=== PATIENT | male | born 1970 | race Caucasian/White ===

== ENCOUNTER 2019-05-07 09:49 | Observation (INO) | payer BC, OTHER ==
--- NOTE | 2019-05-07 10:29 | ER Document Report ---
ED Medical Screen (RME) - General TRAVEL OUTSIDE OF THE [place] IN LAST 30 DAYS: No <GILMA RAMIREZ - Last Filed: 05/07/19 10:27> <JAN RANDALL JR - Last Filed: 05/07/19 14:02> - General Chief Complaint: Arm Problem Stated Complaint: ARM SWELLING/PAIN Time Seen by Provider: 05/07/19 10:20 Primary Care Provider: ANALISA ANDRE MD [ACTIVE STAFF] - Follow up as needed Notes: Patient is a 48-year-old male presents to the emergency department with a chief complaint of bilateral arm pain. Patient states that on he did a heavy arm workout at the gym. Patient reports the next day he had bilateral arm swelling. Patient states he feels like he is having a soreness when he tries to extend the arm. Patient states he has not had any extremity cramping. Patient denies urinary symptoms or darker colored urine. Patient states he has been drinking without nausea, vomiting or diarrhea. Patient reports a history of hypertension. (GILMA RAMIREZ) - Related Data Allergies/Adverse Reactions: adhesive Allergy (Verified 05/07/19 10:24) latex Allergy (Verified 05/07/19 10:24) Past Medical History - Social History Frequency of alcohol use: None Drug Abuse: None - Past Medical History Cardiac Medical History: Reports: Hx Hypertension <GILMA RAMIREZ - Last Filed: 05/07/19 10:27> Physical Exam <GILMA RAMIREZ - Last Filed: 05/07/19 10:27> - Vital signs Vitals: Temp Pulse Resp BP Pulse Ox 98.7 F 61 20 140/89 H 96 05/07/19 10:04 05/07/19 10:04 05/07/19 10:04 05/07/19 10:04 05/07/19 10:04 - Extremities Notes: Bilateral upper extremity non-pitting edema without erythema, ecchymosis or deformity. (GILMA RAMIREZ) Course <GILMA RAMIREZ - Last Filed: 05/07/19 10:27> - Laboratory Result Diagrams: 05/07/19 11:07 05/07/19 11:07 <JAN RANDALL JR - Last Filed: 05/07/19 14:02> - Re-evaluation Re-evalutation: 05/07/19 10:28 I have greeted and performed a rapid initial assessment of this patient. A comprehensive ED assessment and evaluation of the patient, analysis of test results and completion of the medical decision making process will be conducted by additional ED providers. (GILMA RAMIREZ) - Vital Signs Vital signs: Temp Pulse Resp BP Pulse Ox 98.7 F 61 20 140/89 H 96 05/07/19 10:04 05/07/19 10:04 05/07/19 10:04 05/07/19 10:04 05/07/19 10:04 - Laboratory Laboratory results interpreted by me: 05/07/19 05/07/19 11:07 11:07 Sodium 136.0 L AST 739 H Creatine Kinase 88427 H Total Protein 6.2 L Urine Protein 30 H Doctor's Discharge <GILMA RAMIREZ - Last Filed: 05/07/19 10:27> <JAN RANDALL JR - Last Filed: 05/07/19 14:02> - Discharge Referrals: ANALISA ANDRE MD [ACTIVE STAFF] - Follow up as needed
[2019-05-07 11:25] LABS: MEAN CORPUSCULAR VOLUME 89 fl (80-97)
[2019-05-07 11:29] LABS: APPEARANCE,URINE CLEAR; BILIRUBIN,URINE NEGATIVE (NEGATIVE); COLOR,URINE AMBER; GLUCOSE, URINE NEGATIVE (NEGATIVE); KETONES,URINE NEGATIVE (NEGATIVE); LEUKOCYTE ESTERASE,URINE NEGATIVE (NEGATIVE); NITRITE,URINE NEGATIVE (NEGATIVE); PROTEIN,URINE 30 mg/dL (NEGATIVE); UROBILINOGEN,URINE NEGATIVE mg/dL (<2.0)
[2019-05-07 11:34] LABS: ABSOLUTE EOSINOPHILS # (AUTO) 0.3 10^3/uL (0.0-0.6); ABSOLUTE LYMPHOCYTES (AUTO) 1.4 10^3/uL (0.5-4.7); ABSOLUTE MONOCYTES (AUTO) 0.5 10^3/uL (0.1-1.4); ABSOLUTE NEUT (AUTO) 4.9 10^3/uL (1.7-8.2); BASOPHILS % (AUTO) 0.4 % (0-2); EOSINOPHILS % (AUTO) 3.6 % (0-6); HEMATOCRIT 43.1 % (37.9-51.0); LYMPHOCYTES % (AUTO) 19.8 % (13-45); MEAN CORPUSCULAR HGB CONC 34.9 g/dL (32.0-36.0); MONOCYTES % (AUTO) 7.4 % (3-13); PLATELET COUNT 230 10^3/uL (150-450); RED BLOOD COUNT 4.85 10^6/uL (4.35-5.55); RED CELL DISTRIBUTION WIDTH 13.5 % (11.5-14.0); SEGMENTED NEUTROPHILS % (AUTO) 68.8 % (42-78); TOTAL CELLS COUNTED % (AUTO) 100 %; WHITE BLOOD COUNT 7.1 10^3/uL (4.0-10.5)
[2019-05-07 11:40] LABS: ALBUMIN 3.9 g/dL (3.5-5.0); ALKALINE PHOSPHATASE 61 U/L (38-126); ANION GAP 6 (5-19); BILIRUBIN,DIRECT 0.2 mg/dL (0.0-0.4); BILIRUBIN,TOTAL 0.9 mg/dL (0.2-1.3); BLOOD UREA NITROGEN 12 mg/dL (7-20); CALCIUM 9.1 mg/dL (8.4-10.2); CARBON DIOXIDE 29 mmol/L (22-30); CHLORIDE 101 mmol/L (98-107); GLUCOSE 102 mg/dL (75-110); POTASSIUM 4.4 mmol/L (3.6-5.0); TOTAL PROTEIN 6.2 g/dL (6.3-8.2)
[2019-05-07 11:52] LABS: ASPARTATE AMINO TRANSFERASE 739 U/L (17-59)
[2019-05-07 12:13] LABS: CREATINE KINASE 54950 U/L (55-170)
--- NOTE | 2019-05-07 12:14 | ER Document Report ---
ED General - General Chief Complaint: Arm Problem Stated Complaint: ARM SWELLING/PAIN Time Seen by Provider: 05/07/19 10:20 Primary Care Provider: ANALISA ANDRE MD [ACTIVE STAFF] - Follow up as needed TRAVEL OUTSIDE OF THE [place] IN LAST 30 DAYS: No - HPI Notes: Patient is a 48-year-old male who presents emergency department for evaluation of bilateral arm pain and swelling. He has a history of lifting weights. He states that he had taken a sabbatical from this for a while, but lifted on . On Tuesday he noted that his bilateral arms were swollen and sore. He denies any numbness or tingling. No coolness to the extremities. He states his pain is currently a 3 out of 10. Is worsened by movement, nothing seems to make it better. - Related Data Allergies/Adverse Reactions: adhesive Allergy (Verified 05/07/19 10:24) latex Allergy (Verified 05/07/19 10:24) Home Medications: Lisinopril Past Medical History - General Information source: Patient - Social History Smoking Status: Never Smoker Frequency of alcohol use: None Drug Abuse: None Family History: Other - CHF, CKD Patient has suicidal ideation: No Patient has homicidal ideation: No - Past Medical History Cardiac Medical History: Reports: Hx Hypertension Past Surgical History: Reports: Hx Orthopedic Surgery - right tibia and knee Review of Systems - Review of Systems Constitutional: No symptoms reported EENT: No symptoms reported Cardiovascular: No symptoms reported Respiratory: No symptoms reported Gastrointestinal: No symptoms reported Genitourinary: No symptoms reported Musculoskeletal: See HPI Skin: No symptoms reported Neurological/Psychological: No symptoms reported Physical Exam - Vital signs Vitals: Temp Pulse Resp BP Pulse Ox 98.7 F 61 20 140/89 H 96 05/07/19 10:04 05/07/19 10:04 05/07/19 10:04 05/07/19 10:04 05/07/19 10:04 - Notes Notes: Vital signs reviewed, please refer to chart. Head is normocephalic, atraumatic. Pupils equal round, reactive to light. Neck is supple without meningismus. Heart is regular rate and rhythm. Lungs are clear to auscultation bilaterally. Abdomen is soft, nontender, normoactive bowel sounds throughout. Lower extremities without cyanosis or clubbing, no posterior calf tenderness. Examination of the bilateral upper extremity yields a moderate amount of edema. He has no significant tenseness, his compartment does not appear overly stressed. He has 2+ radial pulses, 1+ ulnar pulse bilaterally. Good capillary refill, good sensation. No significant pain with passive or active range of motion. Course - Re-evaluation Re-evalutation: 05/07/19 12:13 Patient presents emergency department for evaluation. I do suspect that this patient has overuse syndrome and edema as a result. He is not showing any signs of compartment syndrome at this time beyond the swelling. We talked at length about compartment syndrome, and the symptoms that should prompt immediate return, and he voiced understanding. Otherwise laboratory values are pending at this time. He has no blood in his urine grossly. 05/07/19 16:36 Dr. Doherty came and evaluated the patient when it was found that his CPK was as elevated as it was. He does not clearly show signs of compartment syndrome at this time. He does recommend elevation. He has normal renal function. He has no myoglobin in his urine. Based on these findings I did elect to try hydration and recheck. On recheck his CPK had decreased significantly, but his calcium did as well. Unfortunately this patient does not have a local PCP. He is here from [place], is planning to travel home on Tuesday, if possible. Given this information I did feel that observation was prudent. Dr. Villaseñor accepted the patient, asked that the patient be assigned to Trinidad Calles NP. She will accept the patient on telemetry. - Vital Signs Vital signs: Temp Pulse Resp BP Pulse Ox 98.4 F 63 13 144/82 H 99 05/07/19 14:02 05/07/19 14:02 05/07/19 14:02 05/07/19 14:02 05/07/19 14:02 - Laboratory Result Diagrams: 05/07/19 11:07 05/07/19 15:16 Laboratory results interpreted by me: 05/07/19 05/07/19 05/07/19 11:07 11:07 15:16 Sodium 136.0 L Potassium 3.5 L Chloride 113 H Anion Gap 2 L Creatinine 0.50 L Calcium 6.9 L* AST 739 H Creatine Kinase 50783 H 89500 H Total Protein 6.2 L Urine Protein 30 H Discharge - Discharge Clinical Impression: Swelling of both upper extremities, Elevated creatine phosphokinase level, Hypocalcemia Condition: Stable Disposition: ADMITTED OBSERVATION Admitting Provider: [facility] Admitted: Telemetry Referrals: ANALISA ANDRE MD [ACTIVE STAFF] - Follow up as needed
[2019-05-07] MEDS: NORMAL SALINE 1000 ML 1,000 ML IV PRN ×2 (12:59→14:05)
--- NOTE | 2019-05-07 14:03 | PDOC CONSULTATION ---
Consultation Consult Date: 05/07/19 Provider Consulted: JAN RANDALL JR History of Present Illness History of Present Illness: PEDRO LUIS MIR is a 48 year old male who presents with bilateral upper extremity swelling due to a workout 2 days ago. He explains that he had not e xercised intensely for over 6 months and had come here to visit with a friend, they did a intense workout and subsequently he had bilateral upper extremity swelling and pain that actually has increased since yesterday. He states that yesterday he was able to see more definition his arms and now he feels like they are edematous. He is not focused on upper extremity elevation or activity modification at this point. He denies any tingling numbness paresthesia, or loss of motor function. He does report that extreme extension produces some tenderness however pain is not his major concern it is more the diffuse swelling. He has not tried [id number] pain medications. Past Medical History Cardiac Medical History: Reports: Hypertension Past Surgical History Past Surgical History: Reports: Orthopedic Surgery - right tibia and knee Social History Smoking Status: Never Smoker Family History Family History: Other - CHF, CKD Parental Family History Reviewed: No Children Family History Reviewed: No Sibling(s) Family History Reviewed.: No Medication/Allergy Allergies/Adverse Reactions: adhesive Allergy (Verified 05/07/19 10:24) latex Allergy (Verified 05/07/19 10:24) Review of Systems Review of Systems: Constitutional: ABSENT: anorexia, chills, night sweats Cardiovascular: ABSENT: chest pain Respiratory: ABSENT: dyspnea Gastrointestinal: ABSENT: vomiting Genitourinary: ABSENT: dysuria Integumentary: ABSENT: rash Neurological: ABSENT: confusion, memory loss, numbness Psychiatric: ABSENT: hallucinations Hematologic/Lymphatic: ABSENT: easy bleeding All negative as above aside from that reported in the HPI and the following: Increased upper extremity swelling bilaterally. Fatigue in both upper extremities Physical Exam Vital Signs: Temp Pulse Resp BP Pulse Ox 98.7 F 61 20 140/89 H 96 05/07/19 10:04 05/07/19 10:04 05/07/19 10:04 05/07/19 10:04 05/07/19 10:04 Intake & Output 05/06/19 05/07/19 05/08/19 06:59 06:59 06:59 Weight 130.9 kg Physical Exam: General appearance: PRESENT: no acute distress, cooperative, well-nourished Head exam: PRESENT: atraumatic, normocephalic Eye exam: PRESENT: EOMI Ear exam: PRESENT: normal external ear exam Mouth exam: PRESENT: neck supple Neck exam: ABSENT: tracheal deviation Respiratory exam: PRESENT: symmetrical, unlabored. ABSENT: accessory muscle use, wheezes Pulses: PRESENT: normal radial pulses, normal dorsalis pedis pul Vascular exam: PRESENT: normal capillary refill GI/Abdominal exam: ABSENT: distended, firm Extremities exam: PRESENT: full ROM Musculoskeletal exam: PRESENT: full ROM, normal inspection Neurological exam: PRESENT: alert, awake, oriented to person, oriented to place, oriented to time Psychiatric exam: PRESENT: appropriate affect. ABSENT: agitated Focused psych exam: ABSENT: catatonic Skin exam: PRESENT: intact. ABSENT: dry All as above aside from that noted in the HPI and the following: Near full range of motion of both upper extremities bilaterally at the elbow shoulder and wrist. -Range of motion without severe pain in the elbows and wrists. -Sensation is grossly intact bilaterally to the radial median ulnar nerves -Radial pulses are present 2+ palpable -Swelling extends from the brachium to the antebrachium, there is minimal minimal pain to palpation, and the compartments are all compressible bilaterally Results Laboratory Results: 05/07/19 11:07 05/07/19 11:07 05/07/19 05/07/19 05/07/19 11:07 11:07 11:07 WBC 7.1 RBC 4.85 Hgb 15.0 Hct 43.1 MCV 89 MCH 31.0 MCHC 34.9 RDW 13.5 Plt Count 230 Seg Neutrophils % 68.8 Sodium 136.0 L Potassium 4.4 Chloride 101 Carbon Dioxide 29 Anion Gap 6 BUN 12 Creatinine 0.75 Est GFR ( Amer) > 60 Glucose 102 Calcium 9.1 Total Bilirubin 0.9 AST 739 H Alkaline Phosphatase 61 Total Protein 6.2 L Albumin 3.9 Urine Color [place] Urine Appearance CLEAR Urine pH 5.0 Ur Specific [place] 1.030 Urine Protein 30 H Urine Glucose (UA) NEGATIVE Urine Ketones NEGATIVE Urine Blood NEGATIVE Urine Nitrite NEGATIVE Ur Leukocyte Esterase NEGATIVE Urine WBC (Auto) 2 Urine RBC (Auto) 1 05/07/19 11:07 Creatine Kinase 72827 H Assessment & Plan - Diagnosis (1) Swelling of both upper extremities Is this a current diagnosis for this admission?: Yes Plan: - Upon evaluation there is no indication at this time for surgical intervention. I encouraged patient to keep his arms elevated at all times. - He explains that he is returning to [place] in the next 2 days and I explained to him that we would like to make sure that he is medically stable for his trip. - I discussed with the emergency department providers the potential for further monitoring or return either to the ER or to my office if symptoms do not improve. -Pain is not severe at this time and is well managed without further intervention -Questions were answered to the patient's understanding. He understands that time is the most important factor for improvement and in the meantime he needs to keep his arms elevated. - Recommend venous duplex prior to discharge. (3) Elevated creatine phosphokinase level Is this a current diagnosis for this admission?: Yes Plan: - Patient's CPK level is over 50,000 at this point however his urinalysis is still within normal limits. Urgency department providers are considering further monitoring with fluid administration and if no improvement potential admission. I am happy to follow him while he is in house. Otherwise he may see me in the clinic.
[2019-05-07 15:57] LABS: BLOOD UREA NITROGEN 8 mg/dL (7-20); GLUCOSE 81 mg/dL (75-110)
[2019-05-07 16:05] LABS: CREATINE KINASE 42126 U/L (55-170); POTASSIUM 3.5 mmol/L (3.6-5.0)
[2019-05-07 16:06] LABS: ANION GAP 2 (5-19); CARBON DIOXIDE 23 mmol/L (22-30); CHLORIDE 113 mmol/L (98-107)
[2019-05-07 16:09] LABS: CALCIUM 6.9 mg/dL (8.4-10.2)
[2019-05-07] MEDS ORDERED: RINGERS SOLUTION,LACTATED 1,000 ML IV ONE (16:20)
[2019-05-07] MEDS ORDERED: MAG HYDROX/AL HYDROX/SIMETH SUSP 30 ML UDCUP PO PRN (16:46)
[2019-05-07] MEDS ORDERED: ONDANSETRON HCL INJ/PF 4 MG/2 ML SDV IV PRN (16:46)
[2019-05-07] MEDS ORDERED: ACETAMINOPHEN 325 MG TABLET PO PRN (16:46)
--- NOTE | 2019-05-07 17:53 | PDOC H&P ---
History of Present Illness Admission Date/PCP: 05/07/19 17:03 Patient complains of: BUE swelling History of Present Illness: PEDRO LUIS MIR is a 48 year old male with a past medical history significant for hypertension, obesity, and AMERICA who presented to the emergency department today with a complaint of 2 days of progressively worsening bilateral upper extremity swelling that started after lifting weights. He reports a sensation of tightness, but no pain, no motor deficits. He does have limited range of motion to his right upper extremity due to "swelling." He denies all other symptoms; no chest pain palpitations dyspnea abdominal pain nausea vomiting or decreased urinary output. Evaluation in the emergency department revealed stable vital signs, normal CBC, and initially normal chemistry with the exception of an elevated AST 739 and CK to 54,000. Patient was provided IV normal saline boluses and follow-up chemistry demonstrated mild hypokalemia (3.5), hypocalcemia (6.9), improved CK to 42k, magnesium is pending. Orthopedic consultation was obtained; recommends bilateral venous Doppler studies and to elevate the extremities. He is referred to the hospitalist service for admission and management of the above-stated complaints and findings. Past Medical History Cardiac Medical History: Reports: Hypertension Denies: Coronary Artery Disease, Myocardial Infarction, Hyperlipidema Pulmonary Medical History: Reports: Sleep Apnea EENT Medical History: Reports: None Neurological Medical History: Reports: None Endocrine Medical History: Reports: Obesity Renal/ Medical History: Reports: None Malignancy Medical History: Reports: None GI Medical History: Reports: None Musculoskeltal Medical History: Reports: None Skin Medical History: Reports: None Psychiatric Medical History: Reports: None Traumatic Medical History: Reports: None Hematology: Reports: None Infectious Medical History: Reports: None Past Surgical History Past Surgical History: Reports: Orthopedic Surgery - back, right tibia and knee Social History Information Source: Patient Lives with: Family Smoking Status: Never Smoker Frequency of Alcohol Use: None Hx Recreational Drug Use: No Drugs: None Hx Prescription Drug Abuse: No - Advance Directive Resuscitation Status: Full Code Surrogate healthcare decision maker:: Patient's sister, Alma Brown, Family History Family History: CAD, Other - CHF, CKD Parental Family History Reviewed: Yes Children Family History Reviewed: Yes Sibling(s) Family History Reviewed.: Yes Medication/Allergy Allergies/Adverse Reactions: adhesive Allergy (Verified 05/07/19 10:24) latex Allergy (Verified 05/07/19 10:24) Review of Systems Constitutional: ABSENT: chills, fever(s), headache(s), weight gain, weight loss Eyes: ABSENT: visual disturbances Ears: ABSENT: hearing changes Cardiovascular: ABSENT: chest pain, dyspnea on exertion, edema, orthropnea, palpitations Respiratory: ABSENT: cough, hemoptysis Gastrointestinal: ABSENT: abdominal pain, constipation, diarrhea, hematemesis, hematochezia, nausea, vomiting Genitourinary: ABSENT: dysuria, hematuria Musculoskeletal: PRESENT: as per HPI Integumentary: ABSENT: rash, wounds Neurological: ABSENT: abnormal gait, abnormal speech, confusion, dizziness, focal weakness, syncope Psychiatric: ABSENT: anxiety, depression, homidical ideation, suicidal ideation Endocrine: ABSENT: cold intolerance, heat intolerance, polydipsia, polyuria Hematologic/Lymphatic: ABSENT: easy bleeding, easy bruising Physical Exam Vital Signs: Temp Pulse Resp BP Pulse Ox 98.4 F 63 13 144/82 H 99 05/07/19 14:02 05/07/19 14:02 05/07/19 14:02 05/07/19 14:02 05/07/19 14:02 Intake & Output 05/06/19 05/07/19 05/08/19 06:59 06:59 06:59 Intake Total 1999 Balance 1999 Weight 130.9 kg General appearance: PRESENT: no acute distress, cooperative - pleasant, morbidly obese, well-developed, well-nourished Head exam: PRESENT: atraumatic, normocephalic Eye exam: PRESENT: conjunctiva pink, EOMI, PERRLA. ABSENT: scleral icterus Ear exam: PRESENT: normal external ear exam Mouth exam: PRESENT: moist, tongue midline Neck exam: ABSENT: carotid bruit, JVD, lymphadenopathy, thyromegaly Respiratory exam: PRESENT: clear to auscultation isha, symmetrical, unlabored. ABSENT: rales, rhonchi, wheezes Cardiovascular exam: PRESENT: RRR, +S1, +S2. ABSENT: diastolic murmur, rubs, systolic murmur Pulses: PRESENT: normal dorsalis pedis pul Vascular exam: PRESENT: normal capillary refill GI/Abdominal exam: PRESENT: normal bowel sounds, soft. ABSENT: distended, guarding, mass, organolmegaly, rebound, tenderness Rectal exam: PRESENT: deferred Extremities exam: PRESENT: other - BUE edema and LROM. ABSENT: calf tenderness, clubbing, pedal edema Musculoskeletal exam: PRESENT: ambulatory Neurological exam: PRESENT: alert, awake, oriented to person, oriented to place, oriented to time, oriented to situation, CN II-XII grossly intact. ABSENT: motor sensory deficit Psychiatric exam: PRESENT: appropriate affect, normal mood. ABSENT: homicidal ideation, suicidal ideation Skin exam: PRESENT: dry, intact, warm. ABSENT: cyanosis, rash Results Laboratory Results: 05/07/19 11:07 05/07/19 15:16 05/07/19 05/07/19 05/07/19 11:07 11:07 11:07 WBC 7.1 RBC 4.85 Hgb 15.0 Hct 43.1 MCV 89 MCH 31.0 MCHC 34.9 RDW 13.5 Plt Count 230 Seg Neutrophils % 68.8 Sodium 136.0 L Potassium 4.4 Chloride 101 Carbon Dioxide 29 Anion Gap 6 BUN 12 Creatinine 0.75 Est GFR ( Amer) > 60 Glucose 102 Calcium 9.1 Total Bilirubin 0.9 AST 739 H Alkaline Phosphatase 61 Total Protein 6.2 L Albumin 3.9 Urine Color [place] Urine Appearance CLEAR Urine pH 5.0 Ur Specific [place] 1.030 Urine Protein 30 H Urine Glucose (UA) NEGATIVE Urine Ketones NEGATIVE Urine Blood NEGATIVE Urine Nitrite NEGATIVE Ur Leukocyte Esterase NEGATIVE Urine WBC (Auto) 2 Urine RBC (Auto) 1 05/07/19 15:16 WBC RBC Hgb Hct MCV MCH MCHC RDW Plt Count Seg Neutrophils % Sodium 138.3 Potassium 3.5 L Chloride 113 H Carbon Dioxide 23 Anion Gap 2 L BUN 8 Creatinine 0.50 L Est GFR ( Amer) > 60 Glucose 81 Calcium 6.9 L* Total Bilirubin AST Alkaline Phosphatase Total Protein Albumin Urine Color Urine Appearance Urine pH Ur Specific [place] Urine Protein Urine Glucose (UA) Urine Ketones Urine Blood Urine Nitrite Ur Leukocyte Esterase Urine WBC (Auto) Urine RBC (Auto) 05/07/19 05/07/19 11:07 15:16 Creatine Kinase 03520 H 06839 H Assessment and Plan - Diagnosis (1) Elevated CK Is this a current diagnosis for this admission?: Yes Plan: Secondary to out of character weightlifting. The patient is admitted to the medical floor on cardiac telemetry. Continue generous IV fluids. Monitor serial chemistries and replace electrolytes as needed. Encourage p.o. fluids. (2) Elevated AST (SGOT) Is this a current diagnosis for this admission?: Yes Plan: Unclear etiology. Patient denies abdominal pain, and has no clinical evidence of liver disorder. He does admit to previous history of heavy drinking but reports it is been several years he has had alcohol intake. Serum EtOH is negative. Continue IV fluids. Follow chemistries (3) Hypocalcemia Is this a current diagnosis for this admission?: Yes Plan: IV calcium gluconate x1 Monitor chemistries. (4) AMERICA (obstructive sleep apnea) Is this a current diagnosis for this admission?: Yes Plan: CPAP nightly (5) HTN (hypertension) Is this a current diagnosis for this admission?: Yes Plan: Continue home dose lisinopril. (6) Swelling of both upper extremities Is this a current diagnosis for this admission?: Yes Plan: Current following weight lifting. Venous Doppler per ortho recommendations pending. Orthopedic consultation was obtained; recommends keeping extremities elevated. - Time Time Spent with patient: 35 or more minutes Medications reviewed and adjusted accordingly: Yes Anticipated discharge: Home Within: within 48 hours
--- NOTE | 2019-05-07 18:24 | RADIOLOGY REPORT (SQ) ---
EXAM DESCRIPTION: VENOUS BILATERAL UPPER COMPLETED DATE/TIME: 05/07/2019 6:04 pm REASON FOR STUDY: BLE edema COMPARISON: None. TECHNIQUE: Dynamic and static ann scale and color images acquired of the right arm venous system. S elected spectral images acquired with additional compression and augmentation maneuvers. The contrala teral subclavian vein and internal jugular vein were also imaged. Images stored on PACS. LIMITATIONS: None. FINDINGS: INTERNAL JUGULAR VEIN: Normal phasicity, compression, augmentation. No visualized echogeni c material on ann scale. No defects on color images. Comparison opposite side normal. SUBCLAVIAN VEIN: Normal compression, augmentation. No visualized echogenic material on ann scale. No defects on color images. AXILLARY VEIN: Normal compression, augmentation. No visualized echogenic material on ann scale. No d efects on color images. BRACHIAL VEIN: Normal compression, augmentation. No visualized echogenic material on ann scale. No d efects on color images. BASILIC VEIN: Normal compression, augmentation. No visualized echogenic material on ann scale. No de fects on color images. CEPHALIC VEIN: Normal compression, augmentation. No visualized echogenic material on ann scale. No d efects on color images. OTHER: No other significant finding. CONTRALATERAL SUBCLAVIAN VEIN AND INTERNAL JUGULAR VEIN: Normal phasicity, compression and augmentation. No visualized echogenic material on ann scale. No de fects on color images. IMPRESSION: NO EVIDENCE DVT OR SVT IN THE RIGHT ARM. TECHNICAL DOCUMENTATION: JOB ID: [id number] Status Overload- All Rights Reserved Reading location - IP/workstation name: [email or web address]
[2019-05-07] MEDS ORDERED: CALCIUM GLUCONATE 1,000 MG in DEXTROSE 5%-WATER 50 ML IV ONE (18:30)
[2019-05-07] MEDS ORDERED: CALCIUM GLUCONATE 1000 MG/10 ML INJ IV ONE (18:36)
[2019-05-07] MEDS: MAGNESIUM OXIDE 400 MG TABLET PO SCH (18:43)
[2019-05-07] MEDS ORDERED: POTASSIUM CHLORIDE 10 MEQ CAPSULE.ER PO ONE (19:00)
[2019-05-07] MEDS: FAMOTIDINE 20 MG TABLET PO SCH (21:48)
[2019-05-07] MEDS: HEPARIN SOD (PORCINE) 5,000 UNIT/ML 1 ML VIAL SUBCUT SCH (21:48)
[2019-05-08] MEDS: RINGERS SOLUTION,LACTATED 1,000 ML IV PRN ×2 (02:43→10:35)
[2019-05-08 04:37] LABS: ABSOLUTE EOSINOPHILS # (AUTO) 0.2 10^3/uL (0.0-0.6); ABSOLUTE LYMPHOCYTES (AUTO) 1.6 10^3/uL (0.5-4.7); ABSOLUTE MONOCYTES (AUTO) 0.4 10^3/uL (0.1-1.4); ABSOLUTE NEUT (AUTO) 2.8 10^3/uL (1.7-8.2); BASOPHILS % (AUTO) 0.7 % (0-2); EOSINOPHILS % (AUTO) 4.7 % (0-6); HEMATOCRIT 37.9 % (37.9-51.0); HEMOGLOBIN 13.2 g/dL (13.5-17.0); LYMPHOCYTES % (AUTO) 31.6 % (13-45); MEAN CORPUSCULAR HEMOGLOBIN 31.2 pg (27.0-33.4); MEAN CORPUSCULAR HGB CONC 34.8 g/dL (32.0-36.0); MEAN CORPUSCULAR VOLUME 90 fl (80-97); PLATELET COUNT 189 10^3/uL (150-450); RED BLOOD COUNT 4.22 10^6/uL (4.35-5.55); TOTAL CELLS COUNTED % (AUTO) 100 %; WHITE BLOOD COUNT 5.2 10^3/uL (4.0-10.5)
[2019-05-08 05:04] LABS: ALBUMIN 3.1 g/dL (3.5-5.0); ALKALINE PHOSPHATASE 47 U/L (38-126); ASPARTATE AMINO TRANSFERASE 535 U/L (17-59); BILIRUBIN,DIRECT 0.3 mg/dL (0.0-0.4); BILIRUBIN,TOTAL 0.7 mg/dL (0.2-1.3); BLOOD UREA NITROGEN 9 mg/dL (7-20); CALCIUM 8.4 mg/dL (8.4-10.2); GLUCOSE 90 mg/dL (75-110); POTASSIUM 4.1 mmol/L (3.6-5.0); TOTAL PROTEIN 5.1 g/dL (6.3-8.2); TRIGLYCERIDES 146 mg/dL (<150)
[2019-05-08 05:09] LABS: CARBON DIOXIDE 28 mmol/L (22-30); CHLORIDE 105 mmol/L (98-107)
[2019-05-08 05:15] LABS: DIRECT LDL 149 mg/dL (<100)
[2019-05-08 05:16] LABS: ANION GAP 3 (5-19)
[2019-05-08] MEDS: HEPARIN SOD (PORCINE) 5,000 UNIT/ML 1 ML VIAL SUBCUT SCH ×2 (05:29→13:39)
[2019-05-08] MEDS: FAMOTIDINE 20 MG TABLET PO SCH (09:38)
[2019-05-08] MEDS: MAGNESIUM OXIDE 400 MG TABLET PO SCH (09:38)
[2019-05-08] MEDS ORDERED: LISINOPRIL 5 MG TABLET PO SCH (10:00)
[2019-05-08] MEDS ORDERED: DOCUSATE SODIUM 100 MG CAPSULE PO SCH (10:00)
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
[2019-05-08 15:03] VITALS: BP 129/67
== END 2019-05-08 17:01 | disposition home or self-care (01) ==
LOC: ER 09:49 → EH 17:03 → 5 18:09
PROVIDERS: ADMIT Internal Medicine; ATTEND Internal Medicine
DX: M62.82 Rhabdomyolysis (principal); R74.0 Nonspecific elevation of levels of transaminase and lactic acid dehydrogenase [LDH]; E83.51 Hypocalcemia; E83.42 Hypomagnesemia; I10 Essential (primary) hypertension; G47.33 Obstructive sleep apnea (adult) (pediatric); E66.01 Morbid (severe) obesity due to excess calories; Z68.41 Body mass index [BMI] 40.0-44.9, adult; Z82.49 Family history of ischemic heart disease and other diseases of the circulatory system; Z84.1 Family history of disorders of kidney and ureter
CPT/HCPCS: 99284; 96360; 96361; 36415 ×2; 80307; 82550 ×2; 83735; 85025 ×2; 80053 ×2; 81001; 80061; 93970; 94660 ×2; J0610; J1644 ×2; J7060; J7030; J7120 ×2; G0378